=== PATIENT | female | born 1985 | race Caucasian/White ===

== ENCOUNTER 2017-04-06 17:21 | Emergency (ER) ==
[2017-04-06 17:29] VITALS: BP 118/74; TEMP 98.6; BMI 32.1
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
[2017-04-06] MEDS ORDERED: LIDOCAINE HCL 1% SDV SUBCUT STA (20:13)
[2017-04-06] MEDS ORDERED: ROCEPHIN IM STA (20:13)
[2017-04-06] MEDS ORDERED: ZITHROMAX PO STA (20:13)
[2017-04-06 21:06] LABS: HIV INTERNAL QC INTERNAL QC VALID; HIV-1 p24 ANTIGEN SCREEN NEGATIVE (NEGATIVE); HIV-1/2 ANTIBODY SCREEN NEGATIVE (NEGATIVE)
[2017-04-06 21:19] LABS: SERUM PREGNANCY INTERNAL QC INTERNAL QC VALID
== END 2017-04-07 00:08 | disposition home or self-care (01) ==
LOC: ED 17:21
DX: T74.21XA Adult sexual abuse, confirmed, initial encounter (principal)
CPT/HCPCS: 36415; 80074; 84703; 86592; 87800; 96372; 99285

== ENCOUNTER 2017-04-30 13:21 | Outpatient (CLI) ==
[2017-04-30 13:46] LABS: BASOPHILS % (AUTO) 0.5 % (0.0-3.0); EOSINOPHILS # (AUTO) 0.2 K/ul (0.0-0.7); EOSINOPHILS % (AUTO) 3.3 % (0.0-7.0); HEMATOCRIT 37.5 % (37.0-47.0); HEMOGLOBIN 12.9 g/dl (12.0-16.0); IMMATURE GRANULOCYTE % (AUTO) 0.2 % (0.0-5.0); LYMPHOCYTES # (AUTO) 1.6 K/uL (0.60-3.4); LYMPHOCYTES % (AUTO) 29.8 (10.0-50.0); MEAN CORPUSCULAR HEMOGLOBIN 31.3 pg (27.0-31.0); MEAN CORPUSCULAR HGB CONC 34.4 (31.8-35.4); MONOCYTES # (AUTO) 0.3 K/uL (0.4-2.0); MONOCYTES % (AUTO) 6.2 (0-10); NEUTROPHILS # (AUTO) 3.3 K/ul (2.0-6.9); PLATELET COUNT 295 10^3/uL (140-440); RED BLOOD COUNT 4.12 10^6/ul (4.20-5.40)
== END 2017-04-30 13:22 | disposition home or self-care (01) ==
LOC: LAB 13:21
PROVIDERS: ATTEND Physician Assistant
DX: T74.21XD Adult sexual abuse, confirmed, subsequent encounter (principal)
CPT/HCPCS: 36415; 85025; 86695; 86696

== ENCOUNTER 2017-05-27 12:10 | Outpatient (CLI) | END 2017-05-27 12:11 | disposition home or self-care (01) | LOC: LAB 12:10 | PROVIDERS: ATTEND Physician Assistant | DX: T74.21XD Adult sexual abuse, confirmed, subsequent encounter (principal); Z20.6 Contact with and (suspected) exposure to human immunodeficiency virus [HIV]; Z51.81 Encounter for therapeutic drug level monitoring | CPT/HCPCS: 36415; 80053; 82248; 83605; 85025; 86592; 86695; 86696; 86701; 86706 ==

== ENCOUNTER 2017-09-24 07:21 | Outpatient (CLI) | payer OTHER ==
--- NOTE | 2017-09-24 08:18 | US ---
EXAM: Abdominal ultrasound limited HISTORY: Elevated liver enzymes COMPARISON: None TECHNIQUE: Sonographic and limited Doppler evaluation of the right upper quadrant was performed. FINDINGS: The liver is increased in echogenicity and measures 13 point a cm. The portal vein is pat ent. The gallbladder demonstrates no stones or sludge. The gallbladder wall measures 0.2 cm in thic kness. Common bile duct is unremarkable and measures 0.3 cm in diameter. The pancreas is unremarkabl e in appearance. The right kidney measures 10.4 x 4.8 x 4.1 cm and cortical thickness of 0.7 cm. IMPRESSION: Mild increased attenuation of the liver may represent mild hepatic steatosis.
== END 2017-09-24 07:22 | disposition home or self-care (01) ==
LOC: RAD 07:21
PROVIDERS: ATTEND Physician Assistant
DX: R74.8 Abnormal levels of other serum enzymes (principal)